=== PATIENT | female | born 1990 | race Caucasian/White ===

== ENCOUNTER 2016-08-18 16:51 | Emergency (ER) | payer SELFPAY ==
[2016-08-18 17:38] LABS: HCG,QUALITATIVE URINE NEGATIVE
[2016-08-18 17:52] LABS: PH,URINE 6.5 (5.0-8.0); URINE BILIRUBIN NEGATIVE (NEGATIVE); URINE BLOOD NEGATIVE (NEGATIVE); URINE GLUCOSE (UA) NEGATIVE (NEGATIVE); URINE LEUKOCYTE ESTERASE NEGATIVE (NEGATIVE); URINE NITRITE NEGATIVE (NEGATIVE); URINE PROTEIN NEGATIVE (NEGATIVE); URINE UROBILINOGEN NORMAL (0-1 mg/dl)
[2016-08-18 17:56] LABS: URINE APPEARANCE CLEAR; URINE COLOR YELLOW
[2016-08-18] MEDS ORDERED: IBUPROFEN 600 MG TABLET ONE (18:46)
[2016-08-18] MEDS ORDERED: DEXAMETHASONE 4 MG TABLET ONE ×2 (18:47→19:06)
[2016-08-18] MEDS ORDERED: HYDROCODONE/ACETAMINOPHEN 5/325MG TABLET ONE (18:47)
== END 2016-08-18 16:52 | disposition home or self-care (01) ==
LOC: ED 16:51
DX: M54.31 Sciatica, right side (principal); M25.551 Pain in right hip; W01.0XXA Fall on same level from slipping, tripping and stumbling without subsequent striking against object, initial encounter; Y93.01 Activity, walking, marching and hiking; Y92.512 Supermarket, store or market as the place of occurrence of the external cause
CPT/HCPCS: 81025; 81003; 99283 ×2; A9270 ×4